=== PATIENT | male | born 1965 | race Caucasian/White ===

== ENCOUNTER 2017-04-02 20:30 | Emergency (ER) | payer SELFPAY ==
[~2017-04-02] VITALS: Ht 180.3 cm; Wt 80.0 kg
[2017-04-02] VITALS (8 sets, daily range): BP systolic 97–110; BP diastolic 54–71; PULSE 85–100; RESP 20–26; TEMP 98.5; O2SAT 95–100
--- NOTE | 2017-04-02 21:09 | PD ---
HPI Chief Complaint: Fall Time Seen by Provider: 20:48 Travel History International Travel<30 days: No Contact w/Intl Traveler<30days: No Traveled to known affect area: No History of Present Illness HPI 51-year-old white male presents to emergency department by EMS from the wall. The patient allegedly had fallen going down a set of escalators and had fallen outside. He appeared to be unable to care for himself. Patient had what appeared to be altered mental status from possible alcohol and/or drugs. The patient was brought to the ER. The patient here today is somnolent. He arouses to noxious stimuli. He is able to open his eyes and goes back to sleep readily. There is no evidence of any trauma. Patient is handling his secretions well. He is maintaining normal saturation. He has intact gag. [facility] Past Medical History Medical History: Unable to Obtain ?: Not Past Surgical History Surgical History: Unable to Obtain Social History Alcohol Use: Yes Tobacco Use: Yes Substance Use: Yes Allergies-Medications (Allergen,Severity, Reaction): Coded Allergies: No Allergy Information Available (Unverified , 04/02/17) Review of Systems ROS Limitations: Intoxication, Altered Mental Status Physical Exam Narrative GENERAL: Well-developed, well-nourished in no apparent distress. Nontoxic appearing. Patient is somnolent but arouses to noxious stimuli. Patient is maintaining his airway. He has intact gag. HEAD: Normocephalic, atraumatic. EYES: Pupils equal round and reactive. Extraocular motions intact. No scleral icterus. No injection or drainage. ENT: Nose clear. Throat without erythema, tonsillar hypertrophy or exudate. Uvula midline. Airway patent. NECK: Trachea midline. Supple, nontender, moves head freely. No central bony tenderness or spasm. CARDIOVASCULAR: Regular rate and rhythm without murmurs, gallops, or rubs. RESPIRATORY: Clear to auscultation. Breath sounds equal bilaterally. No wheezes , rales, or rhonchi. GASTROINTESTINAL: Abdomen soft, non-tender, nondistended. No hepato-splenomegaly , or palpable masses. No guarding. EXTREMITIES: No clubbing, cyanosis, or edema. No joint tenderness. BACK: Nontender without deformity. No flank tenderness. NEUROLOGICAL: Patient is somnolent but arouses to sternal rub but falls back to sleep readily. Data Data Last Documented VS Vital Signs Date Time Temp Pulse Resp B/P (MAP) Pulse Ox O2 Delivery O2 Flow Rate FiO2 04/03/17 02:30 88 20 126/66 (86) 98 Room Air 04/02/17 20:45 98.5 Orders Orders Complete Blood Count With Diff (04/02/17 21:03) Basic Metabolic Panel (Bmp) (04/02/17 21:03) Prothrombin Time / Inr (Pt) (04/02/17 21:03) Ct Brain W/O Iv Contrast(Rout) (04/02/17 21:03) Iv Access Insert/Monitor (04/02/17 21:03) Ecg Monitoring (04/02/17 21:03) Oximetry (04/02/17 21:03) Drug Screen, Random Urine (04/02/17 21:03) Alcohol (Ethanol) (04/02/17 21:03) Sodium Chlor 0.9% 1000 Ml Inj (Ns 1000 M (04/02/17 21:15) Ct Cerv Spine W/O Contrast (04/02/17 21:03) Dextrose 50% In Farhan (Syr) Inj (D50w (Syr (04/02/17 21:23) Dextrose 50% In Farhan (Syr) Inj (D50w (Syr (04/02/17 22:00) Potassium Chloride (Kcl) (04/02/17 22:45) Potassium Chlor 20 Meq Premix (Kcl 20 Me (04/02/17 22:45) Labs Laboratory Tests Test 04/02/17 20:50 04/03/17 00:20 White Blood Count 6.9 TH/MM3 Red Blood Count 4.13 MIL/MM3 Hemoglobin 13.3 GM/DL Hematocrit 38.0 % Mean Corpuscular Volume 92.0 FL Mean Corpuscular Hemoglobin 32.3 PG Mean Corpuscular Hemoglobin Concent 35.1 % Red Cell Distribution Width 13.5 % Platelet Count 348 TH/MM3 Mean Platelet Volume 8.6 FL Neutrophils (%) (Auto) 48.5 % Lymphocytes (%) (Auto) 41.5 % Monocytes (%) (Auto) 5.8 % Eosinophils (%) (Auto) 3.0 % Basophils (%) (Auto) 1.2 % Neutrophils # (Auto) 3.4 TH/MM3 Lymphocytes # (Auto) 2.9 TH/MM3 Monocytes # (Auto) 0.4 TH/MM3 Eosinophils # (Auto) 0.2 TH/MM3 Basophils # (Auto) 0.1 TH/MM3 CBC Comment DIFF FINAL Differential Comment Prothrombin Time 11.1 SEC Prothromb Time International Ratio 1.1 RATIO Blood Urea Nitrogen 8 MG/DL Creatinine 0.82 MG/DL Random Glucose 85 MG/DL Calcium Level 8.0 MG/DL Sodium Level 141 MEQ/L Potassium Level 2.9 MEQ/L Chloride Level 107 MEQ/L Carbon Dioxide Level 24.8 MEQ/L Anion Gap 9 MEQ/L Estimat Glomerular Filtration Rate 99 ML/MIN Ethyl Alcohol Level 155 MG/DL Urine Opiates Screen NEG Urine Barbiturates Screen NEG Urine Amphetamines Screen NEG Urine Benzodiazepines Screen NEG Urine Cocaine Screen NEG Urine Cannabinoids Screen POS MDM Medical Decision Making Medical Screen Exam Complete: Yes Emergency Medical Condition: Yes Medical Record Reviewed: Yes Interpretation(s) Laboratory Tests Test 04/02/17 20:50 04/03/17 00:20 White Blood Count 6.9 TH/MM3 Red Blood Count 4.13 MIL/MM3 Hemoglobin 13.3 GM/DL Hematocrit 38.0 % Mean Corpuscular Volume 92.0 FL Mean Corpuscular Hemoglobin 32.3 PG Mean Corpuscular Hemoglobin Concent 35.1 % Red Cell Distribution Width 13.5 % Platelet Count 348 TH/MM3 Mean Platelet Volume 8.6 FL Neutrophils (%) (Auto) 48.5 % Lymphocytes (%) (Auto) 41.5 % Monocytes (%) (Auto) 5.8 % Eosinophils (%) (Auto) 3.0 % Basophils (%) (Auto) 1.2 % Neutrophils # (Auto) 3.4 TH/MM3 Lymphocytes # (Auto) 2.9 TH/MM3 Monocytes # (Auto) 0.4 TH/MM3 Eosinophils # (Auto) 0.2 TH/MM3 Basophils # (Auto) 0.1 TH/MM3 CBC Comment DIFF FINAL Differential Comment Prothrombin Time 11.1 SEC Prothromb Time International Ratio 1.1 RATIO Blood Urea Nitrogen 8 MG/DL Creatinine 0.82 MG/DL Random Glucose 85 MG/DL Calcium Level 8.0 MG/DL Sodium Level 141 MEQ/L Potassium Level 2.9 MEQ/L Chloride Level 107 MEQ/L Carbon Dioxide Level 24.8 MEQ/L Anion Gap 9 MEQ/L Estimat Glomerular Filtration Rate 99 ML/MIN Ethyl Alcohol Level 155 MG/DL Urine Opiates Screen NEG Urine Barbiturates Screen NEG Urine Amphetamines Screen NEG Urine Benzodiazepines Screen NEG Urine Cocaine Screen NEG Urine Cannabinoids Screen POS Last [address] 04/02/172102 Signed Impressions: Service Date/Time: Sunday, April 02, 2017 21:08 - CONCLUSION: 1. No acute findings in the brain. 2. Mild decreased attenuation in the supratentorial white matter suggests possible ischemic etiology. Jose Healy MD Cervical Spine CT 04/02/172102 Signed Impressions: Service Date/Time: Sunday, April 02, 2017 21:10 - CONCLUSION: 1. No evidence of compression deformity or spondylolisthesis. 2. Mild discogenic degenerative changes in the mid and lower cervical spine without significant neural foraminal stenosis. Jose Healy MD Differential Diagnosis Differential diagnoses: Alcohol intoxication, substance abuse, electrolyte abnormality, malingering, head injury Narrative Course IV access is obtained. 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 He has an intact gag. He is handling his secretions well. He is maintaining his saturations. Repeat Accu-Chek reveals a glucose of 69. His given one amp of glucose here in the ER. The patient has gone to CT scan. It is noted to be negative for acute trauma. Patient is positive for EtOH. Positive for cannabinoids. The patient appears to be intoxicated. This is beyond one would expect with a blood alcohol 155. I suspect he is abusing other drugs that we do not test for here in the ER. Patient has been able to sleep it off here in the ER. The patient is now awake and alert and ambulating to the bathroom freely. I see no other indication for further evaluation and treatment in the ER. He does not meet admission criteria. The patient's consider medically stable on discharge. This is altered mental status, falling, substance abuse Diagnosis Primary Impression: altered mental status Additional Impressions: falling substance abuse Patient Instructions: General Instructions Additional Instructions: Rest. Increase fluids. Avoid alcohol. Avoid illegal substances. Follow-up with [facility] for detox. Do not operate a car or any heavy machinery under the influence of alcohol or drugs. Follow-up with a medical doctor this week. Return to the ER for emergencies Disposition: 01 DISCHARGE HOME Condition: Stable Nicholas Watts Apr 02, 2017 21:08
[2017-04-02] MEDS ORDERED: SODIUM CHLOR 0.9% 1000 ML INJ 1,000 ML IV ONE (21:15)
[2017-04-02] MEDS ORDERED: DEXTROSE 50% IN WATER 50 ML SYRINGE ONE (21:23)
--- NOTE | 2017-04-02 21:57 | RADRPT ---
EXAM DATE/TIME: 04/02/2017 21:08 [facility] COMPARISON: No previous studies available for comparison. INDICATIONS : Trauma, fall today. RADIATION DOSE: 69.15 CTDIvol (mGy) MEDICAL HISTORY : Non-responsive. SURGICAL HISTORY : Non-responsive. ENCOUNTER: Initial ACUITY: 1 day PAIN SCALE: Non-responsive LOCATION: Bilateral head TECHNIQUE: Multiple contiguous axial images were obtained of the head. Using automated exposure control and adj ustment of the mA and/or kV according to patient size, radiation dose was kept as low as reasonably a chievable to obtain optimal diagnostic quality images. DICOM format image data is available electro nically for review and comparison. FINDINGS: CEREBRUM: The ventricles are normal for age. No evidence of midline shift, mass lesion, hemorrhage or acute in farction. No extra-axial fluid collections are seen. There is some mild decreased attenuation in th e supratentorial white matter. POSTERIOR FOSSA: The cerebellum and brainstem are intact. The 4th ventricle is midline. The cerebellopontine angle i s unremarkable. EXTRACRANIAL: The visualized portion of the orbits is intact. SKULL: The calvaria is intact. No evidence of skull fracture. CONCLUSION: 1. No acute findings in the brain. 2. Mild decreased attenuation in the supratentorial white matter suggests possible ischemic etiology. Jose Healy MD on April 02, 2017 at 21:54 Board Certified Radiologist. This report was verified electronically.
[2017-04-02 21:59] LABS: AUTOMATED NEUTROPHIL # 3.4 TH/MM3 (1.8-7.7); BASOPHIL # 0.1 TH/MM3 (0-0.2); BASOPHIL % 1.2 % (0.0-2.0); EOSINOPHIL # 0.2 TH/MM3 (0-0.4); HEMOGLOBIN 13.3 GM/DL (13.0-17.0); LYMPH % 41.5 % (9.0-44.0); LYMPHOCYTE # 2.9 TH/MM3 (1.0-4.8); MEAN CORPUSCULAR HEMOGLOBIN 32.3 PG (27.0-34.0); MEAN CORPUSCULAR HGB CONC 35.1 % (32.0-36.0); MEAN PLATELET VOLUME 8.6 FL (7.0-11.0); MONO % 5.8 % (0.0-8.0); MONOCYTE # 0.4 TH/MM3 (0-0.9); NEUT % 48.5 % (16.0-70.0); PLATELET COUNT 348 TH/MM3 (150-450); RED BLOOD COUNT 4.13 MIL/MM3 (4.50-5.90); RED CELL DISTRIBUTION WIDTH 13.5 % (11.6-17.2); WHITE BLOOD COUNT 6.9 TH/MM3 (4.0-11.0)
[2017-04-02] MEDS ORDERED: DEXTROSE 50% IN WATER 50 ML SYRINGE IV PUSH ONE (22:00)
[2017-04-02 22:13] LABS: INTERNATIONAL NORMALIZED RATIO 1.1 RATIO; PROTHROMBIN TIME - PATIENT 11.1 SEC (9.8-11.6)
--- NOTE | 2017-04-02 22:18 | RADRPT ---
EXAM DATE/TIME: 04/02/2017 21:10 [facility] COMPARISON: No previous studies available for comparison. INDICATIONS : Trauma, fall today. RADIATION DOSE: 39.07 CTDIvol (mGy) MEDICAL HISTORY : Non-responsive. SURGICAL HISTORY : Non-responsive. ENCOUNTER: Initial ACUITY: 1 day PAIN SCALE: Non-responsive LOCATION: Bilateral neck TECHNIQUE: Volumetric scanning of the cervical spine was performed. Multiplanar reconstructions in the sagittal, coronal and oblique axial planes were performed. Using automated exposure control and adjustment o f the mA and/or kV according to patient size, radiation dose was kept as low as reasonably achievable to obtain optimal diagnostic quality images. DICOM format image data is available electronically f or review and comparison. FINDINGS: There is normal alignment of the vertebral bodies of the cervical spine and preservation of vertebral body height. Mild anterior osteophytes present from C4-C7 and mild posterior osteophytes at the C5- 6 and C6-7 levels. Posterior elements are normal alignment without evidence of locked or perched fac ets. The atlantoaxial articulation is intact. The spinous processes are intact. C2-C3: No fracture seen. The neural foramina are patent. C3-C4: No fracture seen. The neural foramina are patent. C4-C5: No fracture seen. The neural foramina are patent. C5-C6: No fracture seen. The neural foramina are patent. C6-C7: No fracture seen. The neural foramina are patent. C7-T1: No fracture seen. The neural foramina are patent. CONCLUSION: 1. No evidence of compression deformity or spondylolisthesis. 2. Mild discogenic degenerative changes in the mid and lower cervical spine without significant neura l foraminal stenosis. Jose Healy MD on April 02, 2017 at 22:14 Board Certified Radiologist. This report was verified electronically.
[2017-04-02 22:25] LABS: BICARBONATE 24.8 MEQ/L (21.0-32.0); CREATININE 0.82 MG/DL (0.60-1.30)
[2017-04-02] MEDS ORDERED: POTASSIUM CHLOR 20 MEQ PREMIX 100 ML IV ONE (22:45)
[2017-04-02] MEDS ORDERED: POTASSIUM CHLORIDE 20 MEQ CONTROLLED RELEASE TAB PO ONE (22:45)
[2017-04-03 00:20] VITALS: BP 120/75; PULSE 86; RESP 20; O2SAT 99
[2017-04-03 00:49] VITALS: BP 123/76; PULSE 92; RESP 20; O2SAT 98
[2017-04-03 01:20] VITALS: BP 115/77; PULSE 88; RESP 21; O2SAT 97
[2017-04-03 02:00] VITALS: BP 111/66; PULSE 86; RESP 21; O2SAT 98
[2017-04-03 02:30] VITALS: BP 126/66; PULSE 88; RESP 20; O2SAT 98
== END 2017-04-03 03:17 | disposition home or self-care (01) ==
LOC: NEPD 20:30
DX: R41.82 Altered mental status, unspecified (principal); F19.10 Other psychoactive substance abuse, uncomplicated
CPT/HCPCS: 70450; 72125; 80048; 80307; 85025; 85610; 96361; 96365; 96366; 99285; J3480; J7030